=== PATIENT | male | born 1960 | race Two or more races ===

== ENCOUNTER → 2024-02-24 | Outpatient (CLI) | payer MEDICAID ==
[~2024-02-24] MED LIST: ALBUTEROL SULF 2.5 MG/0.5ML(0.5%) NEB SOLN ONE
== END | disposition home or self-care (01) ==
LOC: EDSTATUS 10:46 → RT 10:49
PROVIDERS: ATTEND Internal Medicine Pulmonary Disease
DX: J44.9 Chronic obstructive pulmonary disease, unspecified (principal); R05.9 Cough, unspecified
CPT/HCPCS: 94060